=== PATIENT | female | born 2000 | race Hispanic/Latino ===

== ENCOUNTER 2022-11-12 02:26 | Inpatient (IN) | payer OTHER ==
[~2022-11-12] VITALS: Ht 152.4 cm; Wt 68.5 kg
[2022-11-12 02:43] LABS: BASOPHILS % (AUTO) 0.3 % (0.0-5.0); EOSINOPHILS % (AUTO) 0.2 % (0.0-8.0); HEMATOCRIT 41.3 % (36-48); LYMPHOCYTES % (AUTO) 13.3 % (21.0-51.0); MEAN CORPUSCULAR HEMOGLOBIN 30.2 pg (27.0-33.0); MEAN CORPUSCULAR HGB CONC 35.1 g/dL (32.0-36.0); MONOCYTES % (AUTO) 5.9 % (3.0-13.0); NEUTROPHILS % (AUTO) 79.9 % (40.0-77.0); PLATELET COUNT (AUTO) 285 K/uL (130-400); RED CELL DISTRIBUTION WIDTH 11.9 % (11.0-15.5); WHITE BLOOD COUNT (AUTO) 13.9 K/uL (4.8-10.8)
[2022-11-12 02:44] LABS: APPEARANCE,URINE CLOUDY (CLEAR); BILIRUBIN,URINE NEGATIVE (NEGATIVE); COLOR,URINE YELLOW (YELLOW); GLUCOSE, URINE (UA) NEGATIVE (NEGATIVE); KETONES,URINE 40 mg/dL (NEGATIVE); LEUKOCYTE ESTERASE ,URINE 250 Leu/uL (NEGATIVE); NITRATE,URINE NEGATIVE (NEGATIVE); OCCULT BLOOD,URINE LARGE (NEGATIVE); PROTEIN,URINE 50 mg/dL (NEGATIVE); UROBILINOGEN,URINE 0.2 mg/dL (0.2-1.0)
[2022-11-12 02:48] LABS: MUCUS,URINE MANY LPF (None Seen); RBC,URINE 26-50 /HPF (0-1); SQUAMOUS EPITHELIAL CELL,UR FEW /HPF (0-2); WBC,URINE 26-50 /HPF (0-1)
[2022-11-12 02:56] LABS: BACTERIA,URINE Rare /HPF (None Seen); YEAST,URINE BUDDING None Seen /HPF (None Seen)
[2022-11-12 02:57] LABS: ALBUMIN 4.2 g/dL (3.5-5.0); CREATININE 0.7 mg/dL (0.5-1.5); TOTAL PROTEIN, SERUM 8.2 g/dL (6.0-8.3)
[2022-11-12] MEDS ORDERED: MORPHINE 2 MG SYG IVP ONE (03:00)
[2022-11-12] MEDS ORDERED: ONDANSETRON 4MG INJ IVP ONE (03:00)
[2022-11-12 03:06] LABS: POTASSIUM 2.8 mmol/L (3.5-5.1)
[2022-11-12] MEDS ORDERED: IOHEXOL 350 MG/ML 100ML INFUS..BTL IV ONE (03:17)
[2022-11-12] MEDS ORDERED: POTASSIUM BICARB/CIT AC 25 MEQ TABLET.EFF PO ONE (03:30)
[2022-11-12] MEDS ORDERED: CEFTRIAXONE 1G VIAL IVPB ONE (04:00)
[2022-11-12] MEDS ORDERED: 0.9%NACL 1000ML 1,000 ML IV ONE (04:00)
[2022-11-12] MEDS ORDERED: CEFTRIAXONE 1G VIAL ONE (04:08)
[2022-11-12] MEDS ORDERED: MAGNESIUM 2GM PREMIX 50ML 50 ML IV PRN (06:30)
[2022-11-12] MEDS ORDERED: ACETAMINOPHEN 325 MG TAB PO PRN (06:30)
[2022-11-12] MEDS: CEFTRIAXONE 1G VIAL IVPB SCH (06:30)
[2022-11-12] MEDS ORDERED: ZOSYN 3.375GM+NS 50ML 50 ML IVPB ONE (06:36)
[2022-11-12] MEDS: 0.9%NACL 1000ML 1,000 ML IV SCH ×3 (06:48→18:04)
[2022-11-12] MEDS ORDERED: ZOSYN 3.375GM +NS 50ML IVPB ONE (07:00)
[2022-11-12 09:15] VITALS: BP 113/65
[2022-11-12 11:55] VITALS: BP 107/59
[2022-11-12] MEDS: POTASSIUM CHLORIDE 20MEQ/100ML 100 ML IV PRN (12:30)
[2022-11-12] MEDS: MORPHINE 2 MG SYG IVP PRN ×2 (12:31→20:45)
[2022-11-12 13:06] LABS: ALBUMIN 3.5 g/dL (3.5-5.0); CREATININE 0.5 mg/dL (0.5-1.5); MAGNESIUM 1.8 mg/dL (1.80-2.40); POTASSIUM 3.6 mmol/L (3.5-5.1); TOTAL PROTEIN, SERUM 7.1 g/dL (6.0-8.3)
[2022-11-12] MEDS ORDERED: LACTULOSE 20 GM/30 ML UDCUP PO ONE (14:00)
[2022-11-12 16:00] VITALS: BP 113/77
[2022-11-12] MEDS: ONDANSETRON 4MG INJ IVP PRN (18:19)
[2022-11-12 19:01] VITALS: BP 111/70
[2022-11-12] MEDS: LACTULOSE 20 GM/30 ML UDCUP PO SCH (20:17)
[2022-11-12 22:51] VITALS: BP 114/68
[2022-11-13] VITALS (7 sets, daily range): BP systolic 97–113; BP diastolic 60–72
[2022-11-13] MEDS: 0.9%NACL 1000ML 1,000 ML IV SCH ×3 (04:16→18:39)
[2022-11-13] MEDS: CEFTRIAXONE 1G VIAL IVPB SCH (04:59)
[2022-11-13] MEDS: MORPHINE 2 MG SYG IVP PRN (05:00)
[2022-11-13 07:16] LABS: BASOPHILS % (AUTO) 0.1 % (0.0-5.0); EOSINOPHILS % (AUTO) 0.1 % (0.0-8.0); HEMATOCRIT 36.7 % (36-48); LYMPHOCYTES % (AUTO) 12.2 % (21.0-51.0); MEAN CORPUSCULAR HEMOGLOBIN 30.9 pg (27.0-33.0); MEAN CORPUSCULAR HGB CONC 34.9 g/dL (32.0-36.0); MEAN CORPUSCULAR VOLUME 88.6 fL (79-99); MONOCYTES % (AUTO) 10.5 % (3.0-13.0); NEUTROPHILS % (AUTO) 76.6 % (40.0-77.0); PLATELET COUNT (AUTO) 243 K/uL (130-400); RED BLOOD CELL COUNT(AUTO) 4.14 MIL/uL (4.00-5.50); RED CELL DISTRIBUTION WIDTH 12.3 % (11.0-15.5); WHITE BLOOD COUNT (AUTO) 15.2 K/uL (4.8-10.8)
[2022-11-13 07:34] LABS: ALBUMIN 3.2 g/dL (3.5-5.0); CREATININE 0.4 mg/dL (0.5-1.5); POTASSIUM 3.2 mmol/L (3.5-5.1); TOTAL PROTEIN, SERUM 6.7 g/dL (6.0-8.3)
[2022-11-13] MEDS: LACTULOSE 20 GM/30 ML UDCUP PO SCH ×2 (08:17→21:00)
[2022-11-13] MEDS ORDERED: POTASSIUM CHLORIDE 10% ELIXIR 20 MEQ/15 ML UDCUP PO PRN (12:00)
[2022-11-13] MEDS: KCL 20 MEQ ERTAB PO PRN (14:31)
[2022-11-13] MEDS ORDERED: IOHEXOL-350 75 ML VIAL IV ONE (15:09)
[2022-11-13] MEDS ORDERED: DIATR MEGLU/DIATRIZOATE SODIUM 30 ML BOTTLE ONE (15:10)
[2022-11-14] VITALS (24 sets, daily range): BP systolic 102–130; BP diastolic 46–71
[2022-11-14] MEDS: 0.9%NACL 1000ML 1,000 ML IV SCH ×2 (04:33→16:27)
[2022-11-14 06:15] LABS: BASOPHILS % (AUTO) 0.3 % (0.0-5.0); EOSINOPHILS % (AUTO) 0.4 % (0.0-8.0); HEMATOCRIT 36.8 % (36-48); LYMPHOCYTES % (AUTO) 18.4 % (21.0-51.0); MEAN CORPUSCULAR HEMOGLOBIN 30.3 pg (27.0-33.0); MEAN CORPUSCULAR VOLUME 89.1 fL (79-99); MONOCYTES % (AUTO) 12.6 % (3.0-13.0); PLATELET COUNT (AUTO) 250 K/uL (130-400); RED BLOOD CELL COUNT(AUTO) 4.13 MIL/uL (4.00-5.50); RED CELL DISTRIBUTION WIDTH 12.4 % (11.0-15.5); WHITE BLOOD COUNT (AUTO) 11.7 K/uL (4.8-10.8)
[2022-11-14] MEDS: CEFTRIAXONE 1G VIAL IVPB SCH (06:22)
[2022-11-14 06:29] LABS: INR 0.98 (0.85-1.15); PROTHROMBIN TIME 11.4 SEC (9.6-11.6)
[2022-11-14 06:30] LABS: PARTIAL THROMBOPLASTIN TIME 31.4 SEC (26.3-35.5)
[2022-11-14 06:37] LABS: CREATININE 0.4 mg/dL (0.5-1.5)
[2022-11-14 06:39] LABS: TOTAL PROTEIN, SERUM 6.6 g/dL (6.0-8.3)
[2022-11-14 07:28] LABS: POTASSIUM 2.9 mmol/L (3.5-5.1)
[2022-11-14] MEDS: POTASSIUM CHLORIDE 20MEQ/100ML 100 ML IV PRN ×2 (07:45→11:17)
[2022-11-14] MEDS: LACTULOSE 20 GM/30 ML UDCUP PO SCH ×2 (09:00→21:08)
[2022-11-14] MEDS: MORPHINE 2 MG SYG IVP PRN (09:36)
[2022-11-14] MEDS ORDERED: SUCCINYLCHOLINE 200MG/10ML SYR ONE (13:02)
[2022-11-14] MEDS ORDERED: LIDOCAINE PF 100MG/5ML (2%) SYRINGE 5ML ONE (13:02)
[2022-11-14] MEDS ORDERED: PROPOFOL 10 MG/ML 20ML VIAL IV ONE (13:03)
[2022-11-14] MEDS ORDERED: MIDAZOLAM HCL 1 MG/ML 2ML VIAL ONE (13:03)
[2022-11-14] MEDS ORDERED: ROCURONIUM 10MG/1ML SYR 10 MG/ML ML ONE (13:03)
[2022-11-14] MEDS ORDERED: FENTANYL CITRATE PF 50 MCG/1 ML 2ML VIAL ONE ×2 (13:04→14:31)
[2022-11-14] MEDS ORDERED: ROPIVACAINE 0.5% 5MG/ML 30ML IJ ONE (13:15)
[2022-11-14] MEDS ORDERED: BUPIVACAINE/PF 0.25% 30ML VIAL IJ ONE (13:18)
[2022-11-14] MEDS ORDERED: DEXAMETHASONE SOD PHOSPHATE 4 MG/ML 1ML VIAL ONE (13:30)
[2022-11-14] MEDS ORDERED: ONDANSETRON 4MG INJ ONE (13:31)
[2022-11-14] MEDS ORDERED: GLYCOPYRROLATE 1 MG/5 ML SYRINGE ONE (14:02)
[2022-11-14] MEDS ORDERED: CEFAZOLIN SODIUM 1 GM VIAL ONE (14:02)
[2022-11-14] MEDS ORDERED: NEOSTIGMINE 5MG/5ML SYR IV ONE (14:03)
[2022-11-14] MEDS ORDERED: KETOROLAC 30MG VIAL (30MG/ML) ONE (14:03)
[2022-11-14] MEDS ORDERED: CEFAZOLIN SODIUM 1 GM VIAL IRRIG ONE (14:04)
[2022-11-14] MEDS ORDERED: OXYCODONE/ACETAMIN 5/325MG TAB PO PRN (16:00)
[2022-11-14] MEDS ORDERED: HYDROMORPHONE 1 MG INJ IVP PRN (16:00)
[2022-11-14] MEDS: ZOSYN 3.375GM +NS 50ML IVPB SCH ×2 (16:24→23:32)
[2022-11-14] MEDS: ONDANSETRON 4MG INJ IVP PRN (16:24)
[2022-11-14] MEDS ORDERED: 0.9%NACL 50ML IV SCH (16:30)
[2022-11-15 00:06] VITALS: BP 130/72
[2022-11-15] MEDS: 0.9%NACL 1000ML 1,000 ML IV SCH (02:53)
[2022-11-15 03:18] VITALS: BP 126/47
[2022-11-15 04:27] LABS: BASOPHILS % (AUTO) 0.1 % (0.0-5.0); HEMATOCRIT 33.2 % (36-48); LYMPHOCYTES % (AUTO) 7.1 % (21.0-51.0); MEAN CORPUSCULAR HEMOGLOBIN 30.9 pg (27.0-33.0); MEAN CORPUSCULAR HGB CONC 34.3 g/dL (32.0-36.0); NEUTROPHILS % (AUTO) 85.1 % (40.0-77.0); PLATELET COUNT (AUTO) 240 K/uL (130-400); RED BLOOD CELL COUNT(AUTO) 3.69 MIL/uL (4.00-5.50); RED CELL DISTRIBUTION WIDTH 11.9 % (11.0-15.5); WHITE BLOOD COUNT (AUTO) 14.2 K/uL (4.8-10.8)
[2022-11-15 04:37] LABS: INR 0.97 (0.85-1.15); PROTHROMBIN TIME 11.3 SEC (9.6-11.6)
[2022-11-15 04:38] LABS: PARTIAL THROMBOPLASTIN TIME 29.9 SEC (26.3-35.5)
[2022-11-15 04:42] LABS: ALBUMIN 2.6 g/dL (3.5-5.0); CREATININE 0.6 mg/dL (0.5-1.5); MAGNESIUM 1.8 mg/dL (1.80-2.40); POTASSIUM 3.1 mmol/L (3.5-5.1); TOTAL PROTEIN, SERUM 6.2 g/dL (6.0-8.3)
[2022-11-15] MEDS: KCL 20 MEQ ERTAB PO PRN ×3 (05:26→09:03)
[2022-11-15 07:13] VITALS: BP 105/65
[2022-11-15] MEDS ORDERED: LEVO-70 PO (07:26)
[2022-11-15] MEDS: ZOSYN 3.375GM +NS 50ML IVPB SCH (07:45)
[2022-11-15] MEDS: LACTULOSE 20 GM/30 ML UDCUP PO SCH (08:44)
[2022-11-15] MEDS ORDERED: ACET-2079 PO (08:49)
[2022-11-15] MEDS ORDERED: AUGMENTIN PO (08:50)
[2022-11-15] MEDS ORDERED: ONDA22I PO (08:51)
[2022-11-15] MEDS ORDERED: POLY17PO4 PO (08:51)
== END 2022-11-15 11:35 | disposition home or self-care (01) | DRG 418 ==
LOC: EDH 02:26 → EDHIP 02:27 → 3DH 09:15 → WSH 11-13 18:35
PROVIDERS: ADMIT Hospitalist; ATTEND Hospitalist
PROC: 0FT44ZZ Resection of Gallbladder, Percutaneous Endoscopic Approach (ICD-10-PCS; principal; 2022-11-14 13:37)
DX: K80.00 Calculus of gallbladder with acute cholecystitis without obstruction (principal); N39.0 Urinary tract infection, site not specified; K82.A1 Gangrene of gallbladder in cholecystitis; Z20.822 Contact with and (suspected) exposure to COVID-19; E87.6 Hypokalemia; J45.909 Unspecified asthma, uncomplicated; K59.00 Constipation, unspecified; N83.202 Unspecified ovarian cyst, left side; F41.9 Anxiety disorder, unspecified
CPT/HCPCS: 36415; 74177; 76705; 80053; 81001; 81025; 82948; 83690; 83735; 84132; 85025; 85610; 85730; 86850; 86900; 86901; 87040; 87088; 87635; C9803; G0378; J0330; J0690; J0696; J1100; J1885; J2001; J2250; J2270; J2405; J2543; J2704; J2710; J2795; J3010; J3480; J3490; J7030; Q9963; Q9967